=== PATIENT | male | born 1970 | race Caucasian/White ===

== ENCOUNTER 2023-10-31 19:42 | Emergency (ER) | payer OTHER ==
[~2023-10-31] VITALS: Ht 165.1 cm; Wt 84.8 kg
[2023-10-31 20:06] VITALS: BP 148/100; PULSE 97; RESP 16; TEMP 97.4; O2SAT 98
[2023-10-31] MEDS: CYCLOBENZAPRINE 10 MG TAB PO ONE (21:09)
[2023-10-31] MEDS: IBUPROFEN 600 MG TAB PO ONE (21:09)
[2023-10-31] MEDS ORDERED: CYCL-711 PO (22:09)
[2023-10-31] MEDS ORDERED: IBUP-2213 PO (22:09)
== END 2023-10-31 22:14 | disposition home or self-care (01) ==
LOC: MED 19:42
DX: S39.012A Strain of muscle, fascia and tendon of lower back, initial encounter (principal); S16.1XXA Strain of muscle, fascia and tendon at neck level, initial encounter; E11.9 Type 2 diabetes mellitus without complications; I10 Essential (primary) hypertension; Z79.899 Other long term (current) drug therapy; Z88.0 Allergy status to penicillin; V89.2XXA Person injured in unspecified motor-vehicle accident, traffic, initial encounter; Y93.89 Activity, other specified; Y92.410 Unspecified street and highway as the place of occurrence of the external cause; Y99.8 Other external cause status
CPT/HCPCS: 72100; 99283